=== PATIENT | female | born 1930 | race Caucasian/White ===

== ENCOUNTER 2016-09-30 15:33 | Inpatient (IN) ==
[2016-09-30] MEDS ORDERED: NS 1,000 ML IV SCH (17:00)
--- NOTE | 2016-09-30 17:07 | Diag Imaging Result Doc PS360 ---
CHEST-2 VIEWS - 09/30/2016 INDICATION: weakness TECHNIQUE: COMPARISON: 01/03/2014 FINDINGS: The lungs are normally expanded and clear. Heart size and mediastinal contours are normal. No pneumothorax or pleural effusion. IMPRESSION: Negative exam. Electronically signed by Selvin Prado 09/30/2016 5:04 PM
[2016-09-30 18:00] LABS: BASO% 0.1 % (0.0-0.8); EOS# 0.03 X1000 (0.0-0.7); EOS% 0.1 % (0.0-10.0); HEMATOCRIT 37.2 % (37.0-47.0); HEMOGLOBIN 12.3 g/dL (12.0-16.0); IMM GRAN# 0.06 X1000 (0.0-0.04); IMM GRAN% 0.3 % (0.0-0.5); LYMPH# 0.83 X1000 (1.2-3.4); LYMPH% 3.7 % (20.5-51.1); MANUAL DIFF NEEDED? YES; MCH 30.8 PG (27-31); MCHC 33.1 g/dL (33-37); MONO# 1.32 X1000 (0.11-0.59); MONO% 5.8 % (1.7-9.3); MPV 10.6 FL (7.4-10.4); PLT 192 X1000 (130-400)
[2016-09-30 18:12] LABS: ALBUMIN 3.2 g/dL (3.5-5.0); CALCIUM 8.2 mg/dL (8.8-10.2); MAGNESIUM 1.8 mg/dL (1.5-2.7); POTASSIUM 3.7 mmol/L (3.5-5.1); TOTAL BILIRUBIN 0.55 mg/dL (0.20-1.00); TOTAL PROTEIN 6.7 g/dL (6.3-8.3)
[2016-09-30 18:19] LABS: BANDS 2 % (0-1); LYMPHS 6 % (21-51); MONO 2 % (1-9)
[2016-09-30] MEDS ORDERED: ROCEPHIN 1 GM/NS 1 GM/50 ML IVPB IV ONE (21:25)
[2016-09-30] MEDS: KLOR-CON PO SCH (22:53)
[2016-09-30] MEDS: SODIUM CHLORIDE 0.9% INJ SCH (22:53)
[2016-09-30] MEDS: PROTONIX IV SCH (22:54)
[2016-09-30 23:04] LABS: URINE MICRO REVIEW NEEDED? NO; URINE SOURCE VOIDED
--- NOTE | 2016-09-30 23:37 | HISTORY AND PHYSICAL ---
CHIEF COMPLAINT: Weakness. HISTORY OF PRESENT ILLNESS: An 86-year-old female patient, concerned about her blood pressure. Patient claims her blood pressure was fluctuating. She was taking her blood pressure medicine on a p.r.n. basis. According to granddaughter, her blood pressure was doing fair, but then she went to stay with her other daughter, and her blood pressure was up and down. She was taking her blood pressure medicine on a p.r.n. basis. Today, her granddaughter checked her blood pressure. It was low, 88 systolic. The patient was feeling weak, at times dizzy. The patient is very vague and a poor historian. The patient did have a loose bowel movement this morning. Oral intake variable. The patient had unquantified weight loss. The patient had nausea, vomiting, diarrhea a few weeks ago. The patient did have some chills. I did check her blood pressure. It was low normal in my office, around 96 systolic. Because of her old age, fragile medical condition, I decided to admit the patient for observation. The patient denied any typical chest pain, palpitation, orthopnea, or PND. The patient does have a mild cough with scanty sputum production, vague abdominal pain, occasional loose stool with incontinence. The patient does have urge urinary incontinence. The patient was on medication, but it was not helping, and the patient stopped taking medication. The patient does have chronic low back pain, with radiculopathy, arthritic pain in the knee. She does have a problem with recent memory, heat or cold intolerance, at times polyuria, polydipsia. No further history available at this time. ALLERGIES: No known drug allergy. HOME MEDICATION: Calcium with vitamin D, atenolol, lisinopril. The patient was on Detrol, [place], potassium. PAST MEDICAL HISTORY: Hypertension, hypokalemia, hyperlipidemia. Patient was on TriCor, and stopped taking medication by herself. Dementia, urge urinary incontinence, osteoarthritis, sciatica, gastritis, mild dementia. PERSONAL HISTORY: Single. Nonsmoker. Denied alcohol or substance abuse. Fairly independent in activities of daily living. REVIEW OF SYSTEMS: As per HPI. Otherwise, unobtainable. FAMILY HISTORY: Noncontributory. PHYSICAL EXAMINATION: GENERAL: Elderly white female patient, in no acute distress. VITAL SIGNS: Blood pressure 123/56, pulse 75, respirations 18, temperature 98.1 degrees. SKIN: Senile turgor. No rash or petechiae. HEENT: Head atraumatic, normocephalic. [place] conjunctivae. Anicteric sclerae. Extraocular muscle movements normal. Fundus cannot be penetrated. Good oral hygiene. No tonsillopharyngeal congestion or exudate. Ears and nose benign. NECK: Supple. No JVD, thyromegaly or lymphadenopathy. CHEST: Bibasilar crepitation. No rales. CARDIOVASCULAR: 2/6 systolic murmur at the apex. ABDOMEN: Soft. No distention. Bowel sounds present. Mild hypogastric tenderness. EXTREMITIES: No cyanosis, clubbing. No acute DVT. ADAPTED PHYSICAL EDUCATION TEACHER: Alert, awake, able to move all 4 limbs. No acute DVT or acute vascular compromise. Tenderness in lumbosacral spine. The patient admitted with weakness, hypotension, etiology not known. LABORATORY DATA: Leukocytosis with left shift. Chest x-ray was benign. There was no pneumonia. The patient did have some loose bowel movement, but no evidence of colitis. I am going to do a urinalysis to check for UTI. Her other problems include hypertension, hyperlipidemia, gastritis, osteoarthritis, dementia. PLAN: Admit the patient. Septic workup. IV antibiotics. IV fluids. Her lab data did reveal sodium of 126, BUN 29, creatinine 1.5, potassium 3.9. ProBNP was 3777. Overall plan discussed with patient and family. They are in agreement. cc: Clinton Gregorio MD
[2016-10-01] LABS: BILIRUBIN URINE NEGATIVE (NEGATIVE); BLOOD URINE SMALL (NEGATIVE); COLOR ORANGE; GLUCOSE URINE NEGATIVE (NEGATIVE); LEUKOCYTES URINE LARGE (NEGATIVE); NITRITE URINE NEGATIVE (NEGATIVE); PROTEIN URINE 30 mg/dL (NEGATIVE); SP GRAVITY URINE 1.006; TURBIDITY URINE TURBID (CLEAR); UROBILINOGEN URINE NORMAL (NORMAL)
[2016-10-01 00:01] LABS: UR EPITHELIAL CELLS <10 /HPF (<10); URINE BACTERIA 4+ /HPF; URINE RBC <10 /HPF (<10); URINE WBC TNTC /HPF (<10)
[2016-10-01] MEDS: NS 1,000 ML IV SCH (03:45)
[2016-10-01] MEDS: NORCO-5 PO PRN (04:43)
--- NOTE | 2016-10-01 05:10 | EKG Report ---
Test Performed on : 09/30/2016 4:20:29 PM Test Reason : weakness Blood Pressure : / mmHG Vent. Rate : 074 BPM Atrial Rate : 074 BPM P-R Int : 220 ms QRS Dur : 142 ms QT Int : 420 ms P-R-T Axes : 053 -50 008 degrees QTc Int : 466 ms Sinus rhythm. with 1st degree AV block. Left axis deviation Left ventricular hypertrophy with QRS widening Cannot rule out Septal infarct , age undetermined Abnormal ECG No previous ECGs available Confirmed by Xavier DELONG, Mich Traylor ([id number]) on 10/03/2016 12:38:51 PM
[2016-10-01 06:34] LABS: BASO% 0.2 % (0.0-0.8); EOS# 0.12 X1000 (0.0-0.7); EOS% 1.1 % (0.0-10.0); HEMATOCRIT 32.7 % (37.0-47.0); HEMOGLOBIN 11.1 g/dL (12.0-16.0); IMM GRAN# 0.02 X1000 (0.0-0.04); IMM GRAN% 0.2 % (0.0-0.5); LYMPH# 0.53 X1000 (1.2-3.4); LYMPH% 4.8 % (20.5-51.1); MANUAL DIFF NEEDED? YES; MCHC 33.9 g/dL (33-37); MCV 91.3 FL (81-99); MONO# 0.78 X1000 (0.11-0.59); NEUT% 86.7 % (42.2-75.2); PLT 160 X1000 (130-400); RBC 3.58 XMIL (4.2-5.4)
[2016-10-01 06:43] LABS: AGAP 14; ALBUMIN 2.5 g/dL (3.5-5.0); ALKALINE PHOSPHATASE 53 U/L (32-104); BUN 28 mg/dL (8-22); CALCIUM 7.6 mg/dL (8.8-10.2); CHLORIDE 98 mmol/L (98-107); COSMO 267; GOT 16 U/L (10-30); GPT 12 U/L (10-36); HDL 11 mg/dL (45-65); LDL 57 mg/dL; POTASSIUM 3.7 mmol/L (3.5-5.1); SODIUM 131 mmol/L (136-145); TCO2 19 mmol/L (25-35); TOTAL BILIRUBIN 0.44 mg/dL (0.20-1.00); TOTAL PROTEIN 5.6 g/dL (6.3-8.3); TRIGLYCERIDES 122 mg/dL (35-135); VLDL 24 mg/dL
[2016-10-01 07:05] LABS: BANDS 4 % (0-1); LYMPHS 2 % (21-51); MONO 8 % (1-9)
[2016-10-01 07:06] LABS: FREE T4 1.07 ng/dL (0.93-1.70)
--- NOTE | 2016-10-01 07:31 | PROGRESS NOTE ---
DATE: 10/01/2016 SUBJECTIVE: Ms. Acuña is doing better. She had low-grade fever up to 100 degrees. No unusual cough. Denied any diarrhea. No chest pain or unusual shortness of breath. OBJECTIVE: Vital Signs: Her vital signs noted. Lungs: Bibasilar crepitation. Heart: S1 and S2 heard. Abdomen: Soft, globular. Bowel sounds present. Rectal: I did rectal exam. The patient does have external hemorrhoids, non-thrombosed, otherwise rectal exam was benign. Extremities: No cyanosis, clubbing. No acute DVT. DRILLING FLUIDS SPECIALIST: Alert, awake. Able to move all 4 limbs. LAB DATA: Done this morning, WBC count 11.14, hemoglobin 11.1, hematocrit 32.7. Platelet count 160,000. Electrolytes: BUN 28, creatinine 1.2. Lipid panel results reviewed. Urinalysis revealed too numerous to count WBC, leukocyte large, 4+ bacteria. CONSIDERATION: 1. Urinary tract infection. 2. Leukocytosis. 3. The patient does have external hemorrhoid and history of rectal bleed. 4. Osteoarthritis. PLAN: We will continue current treatment. Close observation. Overall plan discussed with the patient and family. They are in agreement. I already started her on IV antibiotics. Fall precautions. cc: Clinton Gregorio MD
[2016-10-01] MEDS: KLOR-CON PO SCH ×2 (08:44→21:54)
[2016-10-01] MEDS: PREPARATION H OINT TOP SCH ×2 (08:45→21:55)
[2016-10-01] MEDS ORDERED: LOPRESSOR PO SCH (12:30)
[2016-10-01] MEDS: ZOSYN 3.375 GM/NS 3.375 GM/50 ML IVPB IV SCH ×2 (15:53→21:54)
[2016-10-01] MEDS: SODIUM CHLORIDE 0.9% INJ SCH (21:54)
[2016-10-01] MEDS: PROTONIX IV SCH (21:54)
[2016-10-01] MEDS: CALTRATE 600 + D PO SCH (21:55)
[2016-10-02] MEDS: NS 1,000 ML IV SCH ×2 (01:18→21:22)
[2016-10-02] MEDS: ZOSYN 3.375 GM/NS 3.375 GM/50 ML IVPB IV SCH ×4 (03:25→21:21)
[2016-10-02] MEDS: KLOR-CON PO SCH ×2 (09:27→21:22)
[2016-10-02] MEDS: PREPARATION H OINT TOP SCH ×2 (09:27→21:26)
--- NOTE | 2016-10-02 13:06 | PROGRESS NOTE ---
DATE: 10/02/2016 SUBJECTIVE: Ms. Acuña' hemoglobin and hematocrit are normal. White count is 11.14. Electrolytes are normal. BUN is 28. Creatinine is 1.2. Stool is negative for Clostridium difficile. The preliminary blood culture grew Gram-negative juan in 1 bottle. We do not have the sensitivity back on her. She is on piperacillin and I think we will continue that on her. -9 cc: MD Clinton Burns MD
[2016-10-02] MEDS: PROTONIX IV SCH (21:21)
[2016-10-02] MEDS: SODIUM CHLORIDE 0.9% INJ SCH (21:22)
[2016-10-02] MEDS: CALTRATE 600 + D PO SCH (21:22)
[2016-10-03] MEDS: ZOSYN 3.375 GM/NS 3.375 GM/50 ML IVPB IV SCH ×3 (03:31→16:40)
[2016-10-03] MEDS: PREPARATION H OINT TOP SCH ×2 (10:14→22:27)
[2016-10-03] MEDS: KLOR-CON PO SCH ×2 (10:15→22:27)
--- NOTE | 2016-10-03 14:13 | PROGRESS NOTE ---
DATE: 10/03/2016 Ms. Acuña is on IV Zosyn. She has been having frequent significant cough today. She may have aspirated slightly. She is well covered. She says she has sinus drainage and she is coughing. We will try to use some Flonase and sinus decongestants for the time being. Overall condition is otherwise stable. -6 cc: MD Clinton Burns MD
[2016-10-03] MEDS: NS 1,000 ML IV SCH (16:15)
[2016-10-03] MEDS: FLONASE NAS SCH (16:40)
[2016-10-03] MEDS: CALTRATE 600 + D PO SCH (22:26)
[2016-10-03] MEDS: MUCINEX D PO SCH (22:27)
[2016-10-04] MEDS: PROTONIX IV SCH ×2 (03:26→05:54)
[2016-10-04] MEDS: ZOSYN 3.375 GM/NS 3.375 GM/50 ML IVPB IV SCH ×4 (03:27→18:23)
--- NOTE | 2016-10-04 07:44 | Diag Imaging Result Doc PS360 ---
EXAM: CHEST-2 VIEWS HISTORY: coughing TECHNIQUE: COMPARISON: 09/30/2016 FINDINGS: The lungs are hyperexpanded. The heart is not enlarged. The vessels are not distended. There are no infiltrates. No pleural effusions. IMPRESSION: No pneumonia. Electronically signed by Zechariah Menjivar 10/04/2016 7:42 AM
[2016-10-04] MEDS: PREPARATION H OINT TOP SCH ×2 (09:53→21:52)
[2016-10-04] MEDS: MUCINEX D PO SCH ×2 (09:53→21:52)
[2016-10-04] MEDS: KLOR-CON PO SCH ×2 (09:53→21:52)
[2016-10-04] MEDS: FLONASE NAS SCH (09:53)
--- NOTE | 2016-10-04 11:09 | PROGRESS NOTE ---
DATE: 10/04/2016 SUBJECTIVE: Ms Acuña is doing better. She was complaining of pain in the right arm where she had an IV, cough with scanty sputum production. No high-grade fever or chills. Her sputum and blood culture were positive for Proteus mirabilis. No nausea or vomiting. No diarrhea. OBJECTIVE: Vital signs: Noted. Neck: Supple. No JVD. Lungs: Bilateral good air entry present. CVS: S1 and S2 heard. Abdomen: Soft, globular. Bowel sounds present. Extremities: No cyanosis, clubbing. No acute DVT. SHAREPOINT CONSULTANT: Alert, awake. Able to move all 4 limbs. CONSIDERATIONS: 1. Sepsis due to urinary tract infection. The patient is on Zosyn. 2. Bronchitis. Chest x-ray was benign. 3. Gastritis. 4. Hypertension. PLAN: I am going to resume her atenolol. Patient is also on lisinopril. Continue IV antibiotics and the rest of the treatment. Overall plan discussed with the patient and family. They are in agreement. cc: Clinton Gregorio MD
[2016-10-04 11:22] LABS: MANUAL DIFF NEEDED? NO
[2016-10-04 11:24] LABS: BASO% 0.3 % (0.0-0.8); EOS# 0.23 X1000 (0.0-0.7); EOS% 3.9 % (0.0-10.0); HEMATOCRIT 33.9 % (37.0-47.0); HEMOGLOBIN 11.1 g/dL (12.0-16.0); IMM GRAN# 0.02 X1000 (0.0-0.04); IMM GRAN% 0.3 % (0.0-0.5); LYMPH# 0.95 X1000 (1.2-3.4); LYMPH% 16.2 % (20.5-51.1); MCH 30.6 PG (27-31); MCHC 32.7 g/dL (33-37); MCV 93.4 FL (81-99); MONO# 0.69 X1000 (0.11-0.59); MONO% 11.7 % (1.7-9.3); NEUT% 67.6 % (42.2-75.2); PLT 176 X1000 (130-400); RBC 3.63 XMIL (4.2-5.4)
[2016-10-04 11:47] LABS: AGAP 10; ALBUMIN 2.4 g/dL (3.5-5.0); ALKALINE PHOSPHATASE 62 U/L (32-104); BUN 7 mg/dL (8-22); CALCIUM 7.9 mg/dL (8.8-10.2); CHLORIDE 103 mmol/L (98-107); COSMO 274; GOT 32 U/L (10-30); GPT 30 U/L (10-36); MAGNESIUM 1.4 mg/dL (1.5-2.7); POTASSIUM 3.8 mmol/L (3.5-5.1); SODIUM 138 mmol/L (136-145); TCO2 25 mmol/L (25-35); TOTAL BILIRUBIN 0.34 mg/dL (0.20-1.00); TOTAL PROTEIN 5.8 g/dL (6.3-8.3)
[2016-10-04] MEDS: TENORMIN PO SCH ×2 (12:06→21:52)
[2016-10-04] MEDS: NS 1,000 ML IV SCH (12:06)
--- NOTE | 2016-10-04 15:14 | ECHO REPORT ---
ORDER DATE: 10/04/2016 INDICATION FOR THE PROCEDURE: Sepsis. History of hypertension, hyperlipidemia. FINDINGS: 1. The right atrium appears normal in size. 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 There does not appear to be any evidence of shunting across this. 2. Mild tricuspid regurgitation. RV systolic pressure of 34. 3. Normal RV size and systolic function. 4. No significant pulmonic insufficiency. 5. Normal left atrial size at 3.4 cm. 6. No mitral valve prolapse. There is moderate mitral annular calcification with mild mitral regurgitation. No evidence of mitral stenosis. 7. Left ventricle appears to be normal in size with an end-diastolic dimension of 4.6. Borderline mild left ventricular hypertrophy with a posterior and interventricular septal wall thickness 1.2 and 1.1 cm respectively. Mildly reduced LV systolic function with a calculated EF of 48%. 8. The aortic valve opens well. It is sclerotic, but not stenotic. There is trace insufficiency. 9. The aorta appears normal in visualized segments. 10. No pericardial effusion seen. cc: MD Clinton Hancock MD
[2016-10-04] MEDS: NORCO-5 PO PRN (18:27)
[2016-10-04] MEDS: CALTRATE 600 + D PO SCH (21:52)
[2016-10-05] MEDS: ZOSYN 3.375 GM/NS 3.375 GM/50 ML IVPB IV SCH ×4 (00:27→21:14)
[2016-10-05] MEDS ORDERED: MAGNESIUM SULFATE 2 GM/S.W.I. 2 GM/50 ML IVPB IV ONE (06:01)
--- NOTE | 2016-10-05 06:29 | PROGRESS NOTE ---
DATE: 10/05/2016 SUBJECTIVE: Ms. Acuña is doing better. She denied any fever or chills. The patient does have cough with expectoration. No high-grade fever or chills. We did chest x-ray yesterday and it was negative for pneumonia. She denied any nausea or vomiting. No dysuria. PHYSICAL EXAMINATION: Vital Signs: Her vital signs noted. Neck: Supple. No JVD. Lungs: Bibasilar crepitations. Heart: S1 and S2 heard. A 2/6 systolic murmur at the apex. Abdomen: Soft, nontender. Bowel sounds present. SUPPLY CHAIN ANALYST: Alert, awake. Able to move all 4 limbs. No acute DVT clinically. CONSIDERATION: Patient admitted with sepsis due to Proteus mirabilis. She also had a urinary tract infection due to Proteus bacteria. She had low magnesium yesterday. I am going to supplement. Echocardiogram results reviewed. Her other problems include hypertension. I started her on beta josh. The patient is tolerating medication well. We will continue current intravenous antibiotics. Close observation. The patient will be benefited from intravenous antibiotics. I had tried to call daughter but her phone is not accepting incoming phone call. Continue rest of the treatment and close observation. If clinical condition permits, we will plan discharging patient home tomorrow. cc: Clinton Gregorio MD
[2016-10-05] MEDS: SYMBICORT 80/4.5 MICROGM INHALER INH SCH ×2 (07:39→19:13)
[2016-10-05] MEDS: PREPARATION H OINT TOP SCH ×2 (08:44→21:16)
[2016-10-05] MEDS: FLONASE NAS SCH (08:44)
[2016-10-05] MEDS: KLOR-CON PO SCH ×2 (08:45→21:16)
[2016-10-05] MEDS: TENORMIN PO SCH ×2 (08:45→21:17)
[2016-10-05] MEDS ORDERED: PRINIVIL PO ONE (20:54)
[2016-10-05] MEDS: CALTRATE 600 + D PO SCH (21:16)
[2016-10-05] MEDS: PROTONIX IV SCH (21:16)
[2016-10-05] MEDS: SODIUM CHLORIDE 0.9% INJ SCH (21:16)
[2016-10-06] MEDS: ZOSYN 3.375 GM/NS 3.375 GM/50 ML IVPB IV SCH ×2 (01:33→09:49)
--- NOTE | 2016-10-06 06:55 | DISCHARGE SUMMARY ---
ADMISSION DATE: 10/01/2016 DISCHARGE DATE: FINAL DISCHARGE DIAGNOSES: 1. Sepsis due to urinary tract infection. 2. Urinary tract infection secondary to Proteus. 3. Hypertension. 4. Osteoarthritis. History suggestive of gout. 5. Urge urinary incontinence. 6. Hypokalemia. 7. Dementia. 8. Gastritis. HOSPITAL COURSE: Ms. Acuña, 86-year-old white female patient, was not feeling well at home. Her blood pressure was fluctuating. Patient was feeling weak; at times, dizzy. I evaluated the patient and her blood pressure was low. I decided to admit the patient for observation. Her initial workup did reveal UTI. The patient was given IV fluid. I started her on IV antibiotics. The urine culture came back positive for Proteus mirabilis. Her blood culture also came back positive, and we decided to admit the patient as an inpatient. Her antibiotics were changed to IV Zosyn. The patient's clinical condition gradually improved. She did have some diarrhea. I did stool workup and stool for Clostridium difficile toxin and antigen were negative. The patient did have some WBC in the stool. I repeated blood culture. So far, it is not reported as positive. I did echocardiogram. No documented vegetation on the heart valve. Clinically, the patient is doing better. Her blood pressure improved; actually, it was going high. The patient is feeling better, eager to go home, and I am planning to discharge her home today on Levaquin. Follow up with me in 1 week. Her vital signs noted. Neck is supple. No JVD. Lungs: Bilateral good air entry present. CVS: S1 and S2 heard, 2/6 systolic murmur at the apex. Abdomen soft, nontender. Bowel sounds present. LABVIEW PROGRAMMER: Alert, awake, able to move all 4 limbs. LABORATORY DATA: On 10/04/2016, her hemoglobin 11.1, hematocrit 33.9, platelet count 176,000. WBC count 5.88. Electrolytes were fairly benign. Magnesium was 1.4. I supplemented her magnesium. Chest x-ray done on 10/04/2016. It was no pneumonia. The patient did have cough expectoration which also improved. Overall, the patient received maximum benefit of hospitalization. I am going to discharge her home today. Fall precaution. Follow up with me in 1 week. She will take: 1. Lopressor 25 mg twice a day. 2. Zestril 5 mg daily. 3. Symbicort 2 puffs b.i.d. 4. Flonase nose spray. 5. Levaquin. 6. Tylenol for pain. 7. Resume her routine home medicine like calcium with vitamin D. In case of more distress, call us back or go to the emergency room. I am going to offer them home health, which I discussed with her daughter yesterday. She wanted to discuss with her sister and then they will call me back. cc: Clinton Gregorio MD
[2016-10-06 07:31] VITALS: BP 143/81
[2016-10-06] MEDS: SYMBICORT 80/4.5 MICROGM INHALER INH SCH (07:53)
[2016-10-06] MEDS ORDERED: TENORMIN PO SCH (08:41)
[2016-10-06] MEDS ORDERED: LOPRESSOR PO SCH (09:00)
[2016-10-06] MEDS ORDERED: PRINIVIL PO SCH (09:00)
[2016-10-06] MEDS: FLONASE NAS SCH (09:49)
[2016-10-06] MEDS: PREPARATION H OINT TOP SCH (09:49)
[2016-10-06] MEDS: KLOR-CON PO SCH (09:50)
== END 2016-10-06 13:50 | disposition home health service (06) ==
LOC: DIRADM → 4N 15:33
PROVIDERS: ADMIT Internal Medicine; ATTEND Internal Medicine

== ENCOUNTER 2019-03-01 05:19 | Inpatient (IN) ==
[2019-03-01] MEDS ORDERED: KEFZOL 1 GM/D5W 1 GM/50 ML IVPB ONE (06:34)
[2019-03-01] MEDS ORDERED: LR 1,000 ML ONE ×2 (06:34→12:42)
[2019-03-01] MEDS ORDERED: DIPRIVAN 1% ONE (07:15)
[2019-03-01] MEDS ORDERED: XYLOCAINE-MPF 2% ONE (07:18)
[2019-03-01] MEDS ORDERED: OFIRMEV 1000 MG/ISOTONIC SOLN 1,000 MG/100 ML BOTTLE ONE (09:07)
[2019-03-01] MEDS ORDERED: EPHEDRINE ONE (10:22)
[2019-03-01] MEDS ORDERED: ZOFRAN ONE (11:43)
--- NOTE | 2019-03-01 12:37 | Diag Imaging Result Doc PS360 ---
EXAM: FLUROSCOPY CYSTO 03/01/2019 HISTORY: LT.STONES LASERED LT. STENT TECHNIQUE: 26 images, COMMENT: Ureteroscopy and stent placement is performed on the left by Dr. Mcdaniel. Contrast injected in the upper ureter demonstrates multiple filling defects in the collecting system most notably in the upper pole calyx. IMPRESSION: Multiple stone fragments in the collecting system on the left. Stent placement. Electronically signed by Poli Medrano 03/01/2019 12:35 PM
[2019-03-01] MEDS ORDERED: MORPHINE IV PRN (12:49)
--- NOTE | 2019-03-01 12:49 | Diag Imaging Result Doc PS360 ---
EXAM: CHEST-PORTABLE 03/01/2019 HISTORY: N/V after surgery TECHNIQUE: AP portable upright at 1235 COMMENT: There are some ill-defined opacities in the left upper lobe which were not previously present on 10/04/2016. There is also increased interstitial markings in the area of the costophrenic angle. IMPRESSION: Bronchopneumonia left upper lobe. Electronically signed by Poli Medrano 03/01/2019 12:47 PM
[2019-03-01 12:59] LABS: HEMATOCRIT 44.7 % (37.0-47.0); MCHC 31.3 g/dL (33-37); MCV 95.9 FL (81-99); MPV 9.5 FL (7.4-10.4); RBC 4.66 XMIL (4.2-5.4); RDW 13.9 % (11.5-14.5); WBC 1.51 X1000 (4.8-10.8)
[2019-03-01] MEDS ORDERED: ZOSYN 3.375 GM in NS 50 ML IV SCH (13:00)
[2019-03-01] MEDS ORDERED: LABETALOL IV PRN (13:00)
[2019-03-01] MEDS ORDERED: ZOFRAN IV PRN (13:00)
[2019-03-01] MEDS ORDERED: DITROPAN PO PRN (13:00)
[2019-03-01] MEDS ORDERED: LR 1,000 ML IV SCH ×2 (13:00→17:00)
[2019-03-01] MEDS ORDERED: NORCO-5 PO PRN (13:00)
[2019-03-01 13:22] LABS: AGAP 20; BUN 13 mg/dL (8-22); CALCIUM 8.5 mg/dL (8.8-10.2); CHLORIDE 104 mmol/L (98-107); COSMO 279; CREATININE 0.8 mg/dL (0.5-0.9); ESTIMATED GFR > 60; GLUCOSE 86 mg/dL (70-104); POTASSIUM 3.3 mmol/L (3.5-5.1); SODIUM 140 mmol/L (136-145); TCO2 16 mmol/L (25-35)
[2019-03-01] MEDS ORDERED: VANCOMYCIN IV PER PHARMACY MISC SCH ×2 (17:00→18:30)
--- NOTE | 2019-03-01 18:17 | OPERATIVE NOTE ---
PROCEDURE DATE: 03/01/2019 PREOPERATIVE DIAGNOSES: 1. Left renal stone. 2. Recurrent urinary tract infection. POSTOPERATIVE DIAGNOSES: 1. Left renal stone. 2. Recurrent urinary tract infection. PROCEDURES PERFORMED: 1. Cystoscopy. 2. Left ureteroscopy with laser lithotripsy and stone basket extraction. 3. Left retrograde pyelogram. 4. Left ureteral stent placement. SURGEON: Av Mcdaniel MD. COMPLICATIONS: None. BLOOD LOSS: 5 mL. SPECIMENS REMOVED: Left renal stone. DRAINS: A 6 x 24 cm left ureteral stent ANESTHESIA: LMA. INDICATIONS FOR PROCEDURE: Ms. Acuña is an 88-year-old who presented to [facility] with recurrent urinary tract infections and microscopic hematuria. The patient underwent a CT scan which showed a large left renal stone measuring approximately 3 cm. The patient is clinically unhealthy with multiple comorbidities. In talking with the patient and her family, gave them options that included observation, chronic ureteral stenting, left ureteroscopy with removal of stones, extracorporeal shockwave lithotripsy, robotic removal of stone or percutaneous nephrostolithotomy. After thorough discussion, the patient and her family would like to proceed with staged ureteroscopy due to size of stone and limited surgical risks. We discussed risk of bleeding, infection, damage to surrounding structures, need for secondary procedures, and use of indwelling ureteral stent. After further discussion, the patient and family elected to proceed DESCRIPTION OF PROCEDURE: After informed consent was obtained, the patient brought to the operating room, and placed on the operating table in supine position. The patient received preoperative antibiotics and underwent LMA placement. She was then positioned to the dorsal lithotomy position, and was prepped and draped in the usual sterile fashion. A preoperative time-out was performed with all parties in agreement, including anesthesia, surgical and nursing staff. At which point I inserted a 21-Marshallese cystourethroscope through the urethra showing a normal caliber urethra. No evidence of stricture disease or papillary lesions. A small cystocele was visualized. Once inside the bladder, the entirety of the bladder was inspected with no papillary lesions, diverticulum, cellules, or trabeculations. Both ureteral orifices were visualized effluxing clear yellow urine. The left ureteral orifice was cannulized with a ZIPwire passed up into the kidney. No obvious stone was seen on fluoroscopy. Wire was left in place, and then a semi-rigid ureteroscope was advanced through the urethra and up into the bladder. Once in the bladder, the left ureteral orifice was able to be cannulized and advanced the ureteroscope all the way up to the proximal ureter with no stone seen. A PTFE wire was then passed through the scope, and seen to coil within the kidney. The ureteroscope was slowly withdrawn which showed no significant ureteral trauma. The patient's bladder was decompressed and a 12/14 and 35 cm ureteral access sheath was then advanced over the PTFE wire up into the kidney. The internal obturator was removed as well as a PTFE wire. A 10F Silicone catheter was insert into the bladder to keep the bladder decompressed during the procedure. The flexible ureteroscope was advanced through sheath and into the kidney at which point a large stone was visualized measuring approximately 3 cm. Using a 200 micron fiber, this was systematically broken up. The stone relatively broke up pretty easily. There was multiple dust like material in sediment. This was all extracted. I was able to remove several larger stones and remove a large portion of the stone with greater than 60%. Appeals Manager fluoroscopy with retrograde pyelogram was then performed which showed some stone debris within the renal pelvis and upper pole. No other large debris was seen in the lower pole interpolar region. Due to patient's age and size of stone, limit stone removal to 1.5 hours. A decision was made that I could not remove all the stone today. Discussed with the family earlier the stage approach to ureteroscopy and stone removal due to the size of her stone. The flexible scope was slowly withdrawn inspecting the ureter as well as removing the sheath. The ureter appeared to be healthy with no significant trauma. Everything was removed leaving the ZIPwire in place, and the ZIPwire was then backloaded through the cystourethroscope. A 6 x 24 cm left ureteral stent was advanced over the wire and up into the kidney. Good curl was seen in the kidney, and endoscopically visualized in the bladder. Good drainage was seen through and around the stent. All stone debris was collected and sent for analysis. DISPOSITION: Patient became hypotensive in PACU after the procedure and was admitted for observation. She was without fever or tachycardica. She was given Zosyn, IV fluids, and labs were sent. Will monitor overnight. cc: Av Mcdaniel MD [facility]
[2019-03-01] MEDS ORDERED: TYLENOL PO PRN (18:19)
[2019-03-01 18:20] LABS: HEMATOCRIT 45.6 % (37.0-47.0); HEMOGLOBIN 14.3 g/dL (12.0-16.0); MCH 30.2 PG (27-31); MCHC 31.4 g/dL (33-37); MCV 96.4 FL (81-99); MPV 10.4 FL (7.4-10.4); RBC 4.73 XMIL (4.2-5.4); RDW 14.3 % (11.5-14.5); WBC 5.41 X1000 (4.8-10.8)
[2019-03-01] MEDS ORDERED: NEO-SYNEPHRINE IV ONE (18:22)
[2019-03-01] MEDS ORDERED: NEO-SYNEPHRINE 50 MG in NS 250 ML IV SCH ×4 (18:45)
[2019-03-01] MEDS ORDERED: NEO-SYNEPHRINE IV SCH (18:45)
[2019-03-01] MEDS ORDERED: VANCOMYCIN 1,500 MG in NS 250 ML IV ONE (19:00)
[2019-03-01] MEDS: NS + KCL 20 MEQ 1,000 ML IV SCH (19:01)
[2019-03-01] MEDS: NEO-SYNEPHRINE 50 MG in NS 250 ML IV SCH ×2 (19:04→23:16)
[2019-03-01] MEDS: TYLENOL PR PRN ×2 (19:12→23:22)
[2019-03-01] MEDS: SSD CREAM TOP SCH (20:03)
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
[2019-03-01] MEDS ORDERED: PERIDEX MT SCH (21:00)
[2019-03-01] MEDS ORDERED: NS 500 ML IV ONE (21:56)
[2019-03-01 22:19] LABS: INR 2.66; PROTIME 29.1 Seconds (11.0-16.0)
[2019-03-01 22:20] LABS: PTT 81.5 Seconds (22.3-41.8)
[2019-03-01] MEDS: ZOSYN 3.375 GM in NS 50 ML IV SCH (22:47)
[2019-03-01 23:00] LABS: ALB/GLOB RATIO 1.4; CREATININE 1.9 mg/dL (0.5-0.9); POTASSIUM 3.5 mmol/L (3.5-5.1); TOTAL BILIRUBIN 4.07 mg/dL (0.20-1.00); TOTAL PROTEIN 5.1 g/dL (6.3-8.3)
[2019-03-01 23:25] LABS: CK INDEX 1.5 (0.0-2.5); CK-MB 4.03 ng/mL (0.0-5.0)
[2019-03-01] MEDS ORDERED: HALDOL IV ONE (23:33)
[2019-03-01] MEDS: LEVOPHED 8 MG in D5 1/2 NS 250 ML IV SCH (23:50)
[2019-03-02] MEDS: NEO-SYNEPHRINE 50 MG in NS 250 ML IV SCH ×10 (01:33→23:50)
[2019-03-02] MEDS ORDERED: NS 500 ML IV ONE (02:46)
[2019-03-02 03:20] LABS: ALLEN TEST YES; BE -19.3 mmoll (-3.0-3.0); BLOOD TYPE ARTERIAL; HCO3-(ACT) 9.8 mmoll (20.0-26.0); METHB 1.2 % (0.0-1.5); O2(CT) 18.9 mL/dL (15.0-23.0); O2HB 96.4 % (95.0-99.0); PCO2(98.6) 22 mmHg (35-45); PO2(98.6) 100 mmHg (60-100); SAMPLE BLOOD; SAO2 99.3 % (95.0-100.0); THB 13.9 g/dL (11.5-17.4)
[2019-03-02 03:21] LABS: MODALITY NRB; pH(98.6) 7.15 (7.35-7.45)
[2019-03-02 03:48] LABS: HEMATOCRIT 42.9 % (37.0-47.0); HEMOGLOBIN 13.4 g/dL (12.0-16.0); MCH 30.1 PG (27-31); MCHC 31.2 g/dL (33-37); MCV 96.4 FL (81-99); MPV 10.6 FL (7.4-10.4); RBC 4.45 XMIL (4.2-5.4); RDW 14.7 % (11.5-14.5); WBC 21.14 X1000 (4.8-10.8)
[2019-03-02 03:55] LABS: CALCIUM 7.4 mg/dL (8.8-10.2); CREATININE 2.2 mg/dL (0.5-0.9); POTASSIUM 3.9 mmol/L (3.5-5.1)
[2019-03-02 04:10] LABS: CK INDEX 1.6 (0.0-2.5); CK-MB 8.62 ng/mL (0.0-5.0)
[2019-03-02] MEDS ORDERED: SODIUM BICARBONATE 8.4% IV PUSH ONE (04:16)
[2019-03-02] MEDS ORDERED: NS 1,000 ML IV SCH ×2 (05:15→05:30)
[2019-03-02] MEDS: NS + KCL 20 MEQ 1,000 ML IV SCH (05:38)
[2019-03-02] MEDS: ZOSYN 3.375 GM in NS 50 ML IV SCH ×3 (06:15→23:00)
[2019-03-02] MEDS: LEVOPHED 8 MG in D5 1/2 NS 250 ML IV SCH ×5 (07:01→23:52)
--- NOTE | 2019-03-02 07:02 | Diag Imaging Result Doc PS360 ---
EXAM: CHEST-PORTABLE 03/02/2019 HISTORY: dyspnea TECHNIQUE: AP portable at 0524 COMMENT: The inspiration is less optimal than on 03/01/2019. Considering this there has been no appreciable change. There is still some ill-defined basilar opacity bilaterally. IMPRESSION: Basilar pulmonary edema and/or pneumonia. Electronically signed by Poli Medrano 03/02/2019 6:59 AM
--- NOTE | 2019-03-02 07:03 | Diag Imaging Result Doc PS360 ---
EXAM: CHEST-PORTABLE 03/01/2019 HISTORY: poss sepsis TECHNIQUE: AP portable erect at 2201 COMMENT: The inspiration is less optimal than on 03/01/2019. There is some ill-defined opacity in both lung bases which may in part be due to poor inspiration. The possibility of atelectasis or mild pulmonary edema cannot be excluded. IMPRESSION: Poor inspiration. Electronically signed by Poli Medrano 03/02/2019 7:00 AM
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
[2019-03-02] MEDS ORDERED: NS 1,000 ML ONE (07:59)
[2019-03-02] MEDS: PITRESSIN 40 UNIT in NS 100 ML IV SCH ×3 (08:05→23:52)
[2019-03-02] MEDS ORDERED: NS 1,000 ML IV ONE ×2 (08:08→08:10)
[2019-03-02] MEDS: SODIUM CHLORIDE 0.9% INJ SCH (08:18)
[2019-03-02] MEDS: PROTONIX IV SCH (08:18)
[2019-03-02] MEDS: DIPRIVAN 1% 1,000 MG/100 ML BOTTLE IV SCH ×2 (08:28→16:26)
[2019-03-02] MEDS ORDERED: SODIUM BICARBONATE 8.4% 150 MEQ in D5W 1,000 ML IV SCH (08:30)
--- NOTE | 2019-03-02 08:30 | Diag Imaging Result Doc PS360 ---
CHEST-PORTABLE - 03/02/2019 8:24 AM INDICATION: intubation COMPARISON: 5:24 AM FINDINGS: There is a new endotracheal tube in good position in the distal trachea about 2 cm above the tomas. Lung volumes are slightly improved. IMPRESSION: Good endotracheal intubation. Electronically signed by Selvin Prado 03/02/2019 8:28 AM
[2019-03-02] MEDS: SSD CREAM TOP SCH (08:52)
[2019-03-02] MEDS ORDERED: TENORMIN PO SCH (09:00)
[2019-03-02] MEDS ORDERED: FLOMAX PO SCH (09:00)
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
[2019-03-02] MEDS: SODIUM BICARBONATE 8.4% 100 MEQ in D5W 1,000 ML IV SCH ×3 (11:11→21:16)
[2019-03-02 12:53] LABS: CK INDEX 1.7 (0.0-2.5); CK-MB 23.26 ng/mL (0.0-5.0)
--- NOTE | 2019-03-02 13:18 | EKG Report ---
Test Performed on : 03/02/2019 03:33:41 AM Test Reason : CCU. No order in [place] Blood Pressure : / mmHG Vent. Rate : 125 BPM Atrial Rate : 089 BPM P-R Int : 000 ms QRS Dur : 110 ms QT Int : 376 ms P-R-T Axes : 000 238 091 degrees QTc Int : 542 ms Suspect arm lead reversal, interpretation assumes no reversal Accelerated Junctional rhythm. with retrograde conduction. Septal infarct , age undetermined Lateral infarct , age undetermined Inferior infarct , age undetermined Abnormal ECG When compared with ECG of 08-JAN-2019 13:53, Significant changes have occurred Unconfirmed Result
[2019-03-02 19:51] LABS: CK INDEX 1.2 (0.0-2.5); CK-MB 41.88 ng/mL (0.0-5.0)
--- NOTE | 2019-03-02 21:21 | PULMONOLOGY CONSULTATION ---
DATE: 03/02/2019 REQUESTING CLINICIAN: Dr. Rios. PRIMARY CARE PHYSICIAN: Dr. Gregorio. REASON FOR CONSULTATION: Septic shock with respiratory failure. HISTORY OF PRESENT ILLNESS: Ms. Acuña is an 88-year-old with history of LV dysfunction and dementia, with nephrolithiasis, who required left ureteroscopy with lithotripsy, stone extraction, and stent placement yesterday for recurrent urinary tract infections and microscopic hematuria. The patient was initially hypertensive following the intervention, but has maintained a progressive hypotension and lactic acidosis. She has required at least 2 vasopressors and has not responded to volume resuscitation. She is poorly responsive. Pulmonary consultation was requested. The patient was on BiPAP, but was failing this modality. I discussed the case with the family. They indicated that she probably would not want aggressive treatment, but then requested intubation because they would like family to visit her before she dies. PAST MEDICAL HISTORY: 1. Dementia, unknown FAST score. 2. LV dysfunction with an ejection fraction of 48%. 3. Hypertension. 4. Nephrolithiasis with recurrent UTIs. 5. Hypokalemia. 6. Dyslipidemia. 7. Status post hemorrhoidectomy. 8. Status post bilateral knee replacements. SOCIAL HISTORY: Cannot be obtained. FAMILY HISTORY: Cannot be obtained. REVIEW OF SYSTEMS: Cannot be obtained. PHYSICAL EXAMINATION: Physical exam reveals a frail white female who has a mottled upper and lower extremities. She has been afebrile for the last 24 hours. Blood pressure 73/45, heart rate 118, respiratory rate 34, oxygen saturation 94%. HEENT: Pupils are equal and reactive. Oropharynx is clear. Neck is supple. Chest reveals shallow but rapid respiratory rate. Cardiac exam: Increased rate. Abdomen is soft. Extremities are cool, clammy and mottled. LABORATORY DATA: Arterial blood gas at 3:11 this morning pH 7.15, pCO2 of 22, pO2 of 100 with a lactate of 12.3. Sodium 144, potassium 3.4, chloride 108, bicarbonate 8, anion gap 28, BUN 24, creatinine 2.2. Urine cultures are negative to date. DIAGNOSTIC DATA: Chest x-ray prior to intubation reveals basilar atelectasis with shallow lung myles. Chest x-ray following intubation reveals endotracheal tube in good position, with decreased atelectasis. IMPRESSION: An 88-year-old with: 1. Septic shock. 2. Acute hypoxemic respiratory failure. 3. Acute renal failure. 4. Persistent lactic acidosis. 5. Dementia. DISCUSSION: An 88-year-old with problems outlined above. The patient is unlikely to survive this hospital course. Family does not want to maintain aggressive measures, but have requested intubation pending arrival of family members. PLAN: 1. Intubation and initiation of mechanical ventilation at the request of the family to prevent her from dying if possible. 2. Continue volume resuscitation. 3. Continue broad-spectrum antibiotics. 4. Prognosis is poor. She is unlikely to survive this hospital stay. cc: MD Av Burden MD
[2019-03-03] MEDS: SODIUM BICARBONATE 8.4% 100 MEQ in D5W 1,000 ML IV SCH ×2 (02:52→08:21)
[2019-03-03] MEDS: NEO-SYNEPHRINE 50 MG in NS 250 ML IV SCH ×4 (02:52→09:53)
[2019-03-03] MEDS: TYLENOL PR PRN (03:44)
[2019-03-03 04:30] LABS: ALLEN TEST YES; BE -12.4 mmoll (-3.0-3.0); BLOOD TYPE ARTERIAL; HCO3-(ACT) 15.2 mmoll (20.0-26.0); METHB 1.6 % (0.0-1.5); O2(CT) 16.8 mL/dL (15.0-23.0); O2HB 94.8 % (95.0-99.0); PCO2(98.6) 24 mmHg (35-45); PO2(98.6) 73 mmHg (60-100); SAMPLE BLOOD; SAO2 98.4 % (95.0-100.0); SRATE 18 BPM; THB 12.6 g/dL (11.5-17.4); TVOL 550 mL; pH(98.6) 7.31 (7.35-7.45)
[2019-03-03 04:33] LABS: MODALITY VENTILATOR
[2019-03-03 05:12] LABS: HEMATOCRIT 38.7 % (37.0-47.0); HEMOGLOBIN 12.6 g/dL (12.0-16.0); MCH 31.3 PG (27-31); MCHC 32.6 g/dL (33-37); MCV 96.3 FL (81-99); RBC 4.02 XMIL (4.2-5.4); RDW 14.9 % (11.5-14.5); WBC 33.56 X1000 (4.8-10.8)
[2019-03-03] MEDS: PITRESSIN 40 UNIT in NS 100 ML IV SCH (05:13)
[2019-03-03] MEDS: LEVOPHED 8 MG in D5 1/2 NS 250 ML IV SCH ×2 (05:13→09:53)
[2019-03-03] MEDS: DIPRIVAN 1% 1,000 MG/100 ML BOTTLE IV SCH (05:14)
[2019-03-03 05:18] LABS: MPV 10.6 FL (7.4-10.4)
[2019-03-03] MEDS: ZOSYN 3.375 GM in NS 50 ML IV SCH (06:09)
[2019-03-03 06:10] LABS: ALB/GLOB RATIO 0.8; ALBUMIN 1.5 g/dL (3.5-5.0); PHOSPHORUS 3.6 mg/dL (2.7-4.5); POTASSIUM 3.6 mmol/L (3.5-5.1); TOTAL BILIRUBIN 3.71 mg/dL (0.20-1.00); TOTAL PROTEIN 3.3 g/dL (6.3-8.3)
[2019-03-03 06:11] LABS: CALCIUM 5.3 mg/dL (8.8-10.2)
[2019-03-03] MEDS ORDERED: CALCIUM GLUCONATE 1 GM in NS 50 ML IV ONE (06:30)
[2019-03-03] MEDS ORDERED: MAGNESIUM SULFATE 2 GM/S.W.I. 2 GM/50 ML IVPB IV ONE (06:30)
--- NOTE | 2019-03-03 06:36 | Diag Imaging Result Doc PS360 ---
EXAM: CHEST-PORTABLE HISTORY: abnormal exam TECHNIQUE: Chest single view COMPARISON: 03/02/2019 FINDINGS: Endotracheal tube is in the right mainstem bronchus. This should BE pulled back approximately 3 cm. The lungs are poorly expanded. The heart is mildly enlarged. Small pleural effusions with mild pulmonary edema. IMPRESSION: No interval improvement. The endotracheal tube is in the right mainstem bronchus and should BE pulled back approximately 3 cm This report was discussed with Mee Nelson in the intensive care unit on 03/03/2019 at 6:35 AM and was readback. Electronically signed by Zechariah Menjivar 03/03/2019 6:34 AM
[2019-03-03] MEDS ORDERED: VANCOMYCIN 1,250 MG in NS 250 ML IV SCH (07:00)
[2019-03-03] MEDS: PROTONIX IV SCH (08:21)
[2019-03-03] MEDS: SODIUM CHLORIDE 0.9% INJ SCH (08:21)
[2019-03-03] MEDS: SSD CREAM TOP SCH (09:54)
[2019-03-03] MEDS ORDERED: ATROPINE 1 % OPHTH SOLN SL PRN (11:22)
[2019-03-03] MEDS ORDERED: MORPHINE IV PRN (11:22)
[2019-03-03] MEDS ORDERED: ATIVAN IV PRN (11:22)
[2019-03-03 14:07] VITALS: BP 0/0
--- NOTE | 2019-03-03 15:07 | PROGRESS NOTE ---
DATE: 03/03/2019 SUBJECTIVE: The patient is postop day 2 from left ureteroscopy, lithotripsy, stone basket extraction, and left ureteral stent placement. The patient has significant sepsis with worsening white blood cell count and hypotension. The patient currently is maxed out on 3 pressors with blood pressures in the high 90s. She has persistent tachycardia at 110 or higher. The patient was intubated yesterday and has remained on the ventilator overnight. Oxygen saturation has been within normal limits. The patient has had minimal urinary output with only 50 recorded yesterday. OBJECTIVE: Vital Signs: Temperature 98.6 degrees, blood pressure 112, respirations 26, blood pressure 102/56, oxygen saturation 94% on the ventilator. General: Sedated. Does not respond to stimulation. Respiratory: No increased work of breathing. The patient remains on ventilator with coarse lung sounds. Cardiovascular: Tachycardia with mottling of the lower extremity. Abdomen: Abdomen is soft, nontender. No abdominal distention. : No suprapubic tenderness. No CVA tenderness. The patient has a catheter in place with only a small amount of bloody output present. Neurologic: Sedated. LABS: White blood cell count 13.6, hemoglobin 12.6, hematocrit 38.7, platelets 51. Sodium 139, potassium 3.6, chloride 97, bicarbonate 13. BUN 35, creatinine 3.0, glucose 178, calcium 5.3, magnesium 1.0, anion gap 29, total bilirubin 3.7. AST 360, ALT 141. ABG lactate was 11.6 with pH of 7.3, CO2 24, bicarbonate 15.2. ASSESSMENT AND PLAN: Ms. Acuña is an 88-year-old, who underwent ureteroscopy with treatment of a large left renal stone. The patient became significantly septic after her procedure and was admitted to the ICU. The patient remains intubated today on max pressors with 3 pressors with evidence of tachycardia with a heart rate of 111 this morning. The blood pressure is in the high 90s and low 100s. The patient has minimal urinary output with worsening renal function, creatinine of 3 and white blood cell count of 33 this morning. The patient's lactate is not clear with a lactate of 11.6 today. The patient is not improving. Talking with Dr. Shine, Dr. Bone and myself, family is planning to proceed with comfort care likely later today. Family is traveling from out of [facility] to [place]. Talked with daughter this morning and they seem at ease with their decision to withdrawal care and continue with comfort care. I told them I support their decision as patient is not improving on max therapies while in the intensive care unit. We will plan to implement care at the discretion of the family. The patient is having multi organ failure with liver failure, renal failure, and cardiac dysfunction. The patient's blood cultures are growing gram-positive cocci. Urine culture is negative to date. We will continue with care per the patient's family. Please call with questions or concerns. cc: Av Mcdaniel MD [facility]
--- NOTE | 2019-03-03 16:59 | PROGRESS NOTE ---
DATE: 03/03/2019 SUBJECTIVE: An 88-year-old, white female, who was admitted to the hospital 03/01/2019, by Dr. Rios with urosepsis. The patient has chronic dementia, large kidney stones. Dr. Mcdaniel was involved. Apparently, patient had cystoscopy followed by left intrarenal stone. The patient was admitted in ICU in septic shock. The patient was on the ventilator support and vasopressors. Significant elevation of plasma lactate levels and electrolytic abnormalities. Family was at bedside. PAST MEDICAL HISTORY: Reviewed. PAST SURGICAL HISTORY: Reviewed. MEDICINES: Reviewed. ALLERGIES: Not known. REVIEW OF SYSTEMS: Not able to obtain. OBJECTIVE: The patient is tachycardic, hypotensive, maxed out on vasopressors, on intubation, and unable to assess the full exam. INVESTIGATIONS: White cell count 33.56, hematocrit 38, platelets 51,000. ABG, pH is 7.31, pCO2 of 24, PO2 of 73, on assisted control 70% FiO2, tidal volume 550, PEEP of 5. Sodium 139, potassium 3.6, BUN 35, creatinine 3.0 calcium 5.3, magnesium 1.0. Increased LFTs. CK was also going up, as well as troponin. Blood cultures are gram-positive cocci. EKG was also abnormal. ASSESSMENT AND PLAN: 1. Severe septic shock, impending multiorgan failure, hemodynamically unstable. 2. History of kidney stones on the left side. 3. Hypocalcemia, hypomagnesemia. 4. All of the clinical picture is worsening since yesterday. There is no improvement. The mortality rate is high. I spoke to the families and one of the family members flew in from [place], and they made a unanimous decision with DNR level 1, withdrawal support and nurses were communicated. Family is agreeable. Waiting for demise. Prognosis is poor. We will extubate and continue comfort care which includes morphine, Ativan, and atropine drops. LEVEL OF DOCUMENTATION: 35 minutes. cc: MD Av Ulloa MD [facility]
--- NOTE | 2019-03-03 20:37 | PULMONOLOGY PROGRESS NOTE ---
DATE: 03/03/2019 SUBJECTIVE: The patient is poorly responsive. She remains on 3 vasopressors. OBJECTIVE: Maximum temperature in the last 24 hours 100.4 degrees, heart rate 111, respiratory rate 28, oxygen saturation 28%, blood pressure 92/50. HEENT: Pupils are equal. Oropharynx appears clear. Neck is supple. Chest reveals diffuse rhonchi bilaterally. Cardiac exam: S1, S2. Abdomen is soft. Extremities are cold and clammy to the touch with mottling bilaterally. LABORATORY DATA: Blood culture is growing a gram-positive cocci. White blood count 33,000, hemoglobin 12.6, platelet count 51,000. Arterial blood gas reveals pH 7.31, pCO2 of 24, pO2 of 73 with a lactate of 11.6. Glucose 139, potassium 3.6, chloride 97, bicarbonate 13, BUN 35, creatinine 3.0, phosphorus 1.0, bilirubin 3.71. IMPRESSION: An 88-year-old with nephrolithiasis who has: 1. Acute hypoxemic respiratory failure. 2. Septic shock with bacteremia. 3. Acute renal failure. 4. Liver failure. 5. Intractable lactic acidosis. DISCUSSION: An 88-year-old with problems outlined above. The patient is critically ill. Chances of surviving this hospitalization are low. The patient's previous wishes were not to be maintained on mechanical ventilation. The family is gathering this morning with the anticipation of compassionate extubation with comfort measures. PLAN: 1. Continue current treatment pending final assembly and decision of family. 2. Spoke with the family member at the bedside this morning. Time spent in critical care management 30-plus minutes. cc: MD Av Burden MD
[2019-03-04] MEDS ORDERED: VANCOMYCIN 1,250 MG in NS 250 ML IV SCH (19:00)
--- NOTE | 2019-03-13 08:25 | DISCHARGE SUMMARY ---
ADMISSION DATE: 03/01/2019 DISCHARGE DATE: 03/03/2019 TIME OF : 12:01. FINAL DIAGNOSIS: Acute cardiopulmonary arrest due to severe septic shock with multiorgan failure from urosepsis with underlying kidney stones. OTHER DIAGNOSES: 1. Acute respiratory failure. 2. Hypovolemic shock, on vasopressors. 3. Hypocalcemia. 4. Hypomagnesemia. 5. Dementia. 6. Osteoarthritis. 7. History of bilateral knee replacement. CONSULTS: Dr. Mcdaniel. PROCEDURES: 1. Cystoscopy, left ureteroscopy with laser lithotripsy and stone basket extraction, followed by left ureteral stent placement. 2. Ventilator support and vasopressor support. HISTORY AND HOSPITAL COURSE: Please see the H and P by Dr. Rios. In brief, she is an 88-year- old white female, patient of Dr. Gregorio, who came into the hospital basically with hypotension, with underlying dementia, large kidney stones on the left side associated with hypokalemia. Initial impression was septic shock. It was thought that the patient has urosepsis. Dr. Mcdaniel did a cystoscopy, followed by double-J stent on the left side. Blood cultures grew enterococci. The patient was admitted in the ICU in severe septic shock. The patient was intubated on ventilator support, hypovolemic, requiring crystalloids and vasopressors. She continued to deteriorate with severe septic shock. Prognosis was grave. Given her situation, family decided DO NOT RESUSCITATE 1 and withdrawal of support. After the family agreed upon, I was on-call, and ventilator support was withdrawn. The patient was on propofol drip. She peacefully within an hour after the extubation, at 12:01. The cause of the was due to cardiopulmonary arrest due to multiorgan failure from urosepsis due to Enterococcus faecalis. Family was there at bedside. cc: MD Av Ulloa MD
== END 2019-03-03 12:01 | disposition expired | DRG 853 ==
LOC: OPS 05:19 → PAT 05:19 → 4N 05:19 → ICU 17:43
PROVIDERS: ADMIT Urology; ATTEND Urology